=== PATIENT | male | born 1995 | race Caucasian/White ===

== ENCOUNTER 2017-12-07 07:24 | Emergency (ER) | payer OTHER ==
[~2017-12-07] VITALS: Ht 175.3 cm; Wt 119.3 kg
[2017-12-07 07:30] VITALS: TEMP 36.6; Ht 175.3 cm; Wt 119.3 kg
[2017-12-07] MEDS ORDERED: ONDANSETRON INJ 2 MG/ML 2 ML VIAL IV STA (07:47)
[2017-12-07] MEDS ORDERED: MoRPHine SULFATE 4 MG/ML 1 ML CARP\\VIAL IV STA (07:47)
[2017-12-07 08:24] LABS: BASO % 0.3 %; BASO ABS # 0.02 K/uL (0-0.2); EOS % 2.9 %; EOS ABS # 0.23 K/uL (0-0.5); HEMATOCRIT 43.7 % (42-52); HEMOGLOBIN 15.3 g/dL (14.0-18.0); IG# 0.02 K/uL (0.00-0.02); LYMPH % 24.1 %; LYMPH ABS # 1.91 K/uL (1.2-3.4); MEAN CORPUSCULAR HEMOGLOBIN 28.7 pg (25-34); MEAN PLATELET VOLUME 9.6 fL (7.4-10.4); MONO % 9.3 %; MONO ABS # 0.74 K/uL (0.11-0.59); NEUT % 63.1 %; NEUT ABS # 5.02 K/uL (1.4-6.5); PLATELET COUNT 292 K/uL (130-400); RED CELL DISTRIBUTION WIDTH CV 13.2 % (11.5-14.5); RED CELL DISTRIBUTION WIDTH SD 40.1 fL (36.4-46.3); WHITE BLOOD COUNT 7.94 K/uL (4.8-10.8)
[2017-12-07 08:39] LABS: CALCIUM 9.8 mg/dl (8.5-10.1); CREATININE 1.03 mg/dl (0.60-1.40); POTASSIUM 3.3 mmol/L (3.5-5.1)
--- NOTE | 2017-12-07 08:50 | DIAGNOSTIC IMAGING REPORT ---
ULTRASOUND TESTES AND SCROTUM CLINICAL HISTORY: Left testicular pain. COMPARISON STUDY: No priors. TECHNIQUE: Real-time, grayscale, and color Doppler sonography of the testes and scrotum is performed. Images are reviewed in the transverse and longitudinal planes. FINDINGS: The testes are normal in size and homogeneous in echotexture. The right testis measures 5.5 x 2.8 x 3.7 cm and the left testis measures 5.3 x 2.7 x 3.8 cm. No intratesticular mass is seen. Testicular blood flow is normal and symmetric. Normal Doppler waveforms are identified in both testes. The epididymal heads are normal in appearance. The right epididymal head measures 1.3 cm in length and the left epididymal head measures 1.0 cm in length. No varicocele or hydrocele is seen. IMPRESSION: Unremarkable sonographic assessment of the testes and scrotum. Electronically signed by: Robin Rushing M.D. 12/07/2017 8:49 AM Dictated Date/Time: 12/07/2017 8:48 AM
--- NOTE | 2017-12-07 10:48 | DIAGNOSTIC IMAGING REPORT ---
KUB CLINICAL HISTORY: Hematuria. Left scrotal pain. FINDINGS: 2 AP supine abdominal radiographs are obtained. No prior studies are available for comparison at the time of dictation. There is a nonobstructed abdominal bowel gas pattern. Moderate fecal retention is noted in the right colon. No evidence of intraperitoneal free air is seen on these supine images. There is no radiographic evidence of nephrolithiasis. The bony structures appear intact. IMPRESSION: There is no radiographic evidence of nephrolithiasis. Electronically signed by: Robin Rushing M.D. 12/07/2017 10:47 AM Dictated Date/Time: 12/07/2017 10:46 AM
--- NOTE | 2017-12-07 11:00 | EMERGENCY ROOM VISIT NOTE ---
History First contact with patient: 07:29 Chief Complaint: GROIN PAIN Stated Complaint: GROIN PAIN History of Present Illness The patient is a 22 year old male who presents to the Emergency Room via ambulance from the [facility] with complaints of "groin pain". The patient notes that he woke up today around 6 AM with 10 out of 10 sharp shooting left testicular pain. He felt as though his testicle on the left was pulled up into his abdomen. He states that nothing makes the pain better. He questions if perhaps urinating might make it better but does not believe so. He denies any dysuria, recent sexual contacts, headache, vision change, shortness of breath, chest pain, change in bowel or bladder. Review of Systems A complete 10-point Review of Systems was discussed with the patient, with pertinent positives and negatives listed in the History of Present Illness. All remaining Review of Systems questions can be considered negative unless otherwise specified. Past Medical/Surgical History No pertinent. Family History Kidney stones. Social History Smoking Status: Never Smoker Patient lives locally. Current/Historical Medications No Active Prescriptions or Reported Meds Physical Exam Vital Signs Date Time Temp Pulse Resp B/P (MAP) Pulse Ox O2 Delivery O2 Flow Rate FiO2 12/07/17 11:43 96 18 142/89 96 Room Air 12/07/17 10:12 98 18 149/79 98 Room Air 12/07/17 09:04 95 18 130/78 98 Room Air 12/07/17 07:30 36.6 84 18 133/92 97 Room Air Physical Exam VITAL SIGNS - Vital signs and nursing notes were reviewed. Stable. Afebrile. GENERAL -22-year-old male appearing his stated age who is in no acute distress. Communicates well with provider and answers questions appropriately. SKIN - Without rashes. No meningeal or petechial rash. HEAD - NC/AT. EYES - PERRL with EOMI bilaterally. Sclera anicteric. EARS - No deformities of external structures noted on gross examination bilaterally. NOSE - Midline and without cyanosis. No epistaxis or purulent drainage noted. MOUTH/OROPHARYNX - Without perioral cyanosis. NECK - Neck with FROM. Supple to palpation. No lymphadenopathy noted. No nuchal rigidity. LUNGS - Chest wall symmetric without accessory muscle use, intercostals retractions, or central cyanosis. Normal vesicular breath sounds CTA B/L. No wheezes, rales, or rhonchi appreciated. CARDIAC - RRR with S1/S2. No murmur, rubs, or gallops appreciated. ABDOMEN - Abdominal contour normal without pulsations or visible masses. BS normoactive all four quadrants. No tenderness, palpable masses, hepatosplenomegaly, or ascites noted. EXTREMITIES - No clubbing or peripheral cyanosis. No pretibial edema present. +5 /5 strength noted in UE/LE bilaterally. NEUROLOGIC - Cranial nerves II through XII grossly intact. Sensory intact to light touch throughout. PSYCH - A&O, and cooperates fully with examiner. Pt is very pleasant and interacts well with examiner. : Left testicle tender. Slightly raised. Not rotated or abnormal lie Medical Decision & Procedures ER Provider Diagnostic Interpretation: [ KUB CLINICAL HISTORY: Hematuria. Left scrotal pain. FINDINGS: 2 AP supine abdominal radiographs are obtained. No prior studies are available for comparison at the time of dictation. There is a nonobstructed abdominal bowel gas pattern. Moderate fecal retention is noted in the right colon. No evidence of intraperitoneal free air is seen on these supine images. There is no radiographic evidence of nephrolithiasis. The bony structures appear intact. IMPRESSION: There is no radiographic evidence of nephrolithiasis. Electronically signed by: Robin Rushing M.D. 12/07/2017 10:47 AM Dictated Date/Time: 12/07/2017 10:46 AM ULTRASOUND TESTES AND SCROTUM CLINICAL HISTORY: Left testicular pain. COMPARISON STUDY: No priors. TECHNIQUE: Real-time, grayscale, and color Doppler sonography of the testes and scrotum is performed. Images are reviewed in the transverse and longitudinal planes. FINDINGS: The testes are normal in size and homogeneous in echotexture. The right testis measures 5.5 x 2.8 x 3.7 cm and the left testis measures 5.3 x 2.7 x 3.8 cm. No intratesticular mass is seen. Testicular blood flow is normal and symmetric. Normal Doppler waveforms are identified in both testes. The epididymal heads are normal in appearance. The right epididymal head measures 1.3 cm in length and the left epididymal head measures 1.0 cm in length. No varicocele or hydrocele is seen. IMPRESSION: Unremarkable sonographic assessment of the testes and scrotum. Electronically signed by: Robin Rushing M.D. 12/07/2017 8:49 AM Dictated Date/Time: 12/07/2017 8:48 AM RENAL ULTRASOUND CLINICAL HISTORY: Hematuria, left testicular pain. COMPARISON STUDY: KUB December 07, 2017. TECHNIQUE: Sonography of the kidneys and the urinary bladder was performed. FINDINGS: The right kidney measures 10.4 cm in maximal dimension and the left measures 11.4 cm. There is no hydronephrosis. No masses or renal calculi are identified by sonography. Renal echogenicity, size and cortical thickness are normal. Bladder is suboptimally assessed given underdistention but no abnormalities identified. Borderline splenomegaly is noted. IMPRESSION: Unremarkable sonographic appearance of the kidneys. No hydronephrosis. Electronically signed by: Mahamed Ramirez M.D. 12/07/2017 11:25 AM Dictated Date/Time: 12/07/2017 11:24 AM Laboratory Results 12/07/17 08:09 Red Blood Count 5.33, Mean Corpuscular Volume 82.0, Mean Corpuscular Hemoglobin 28.7, Mean Corpuscular Hemoglobin Concent 35.0, Mean Platelet Volume 9.6, Neutrophils (%) (Auto) 63.1, Lymphocytes (%) (Auto) 24.1, Monocytes (%) (Auto) 9.3, Eosinophils (%) (Auto) 2.9, Basophils (%) (Auto) 0.3, Neutrophils # (Auto) 5.02, Lymphocytes # (Auto) 1.91, Monocytes # (Auto) 0.74, Eosinophils # (Auto) 0.23, Basophils # (Auto) 0.02 12/07/17 08:09 Test 12/07/17 08:09 12/07/17 09:50 White Blood Count 7.94 K/uL (4.8-10.8) Red Blood Count 5.33 M/uL (4.7-6.1) Hemoglobin 15.3 g/dL (14.0-18.0) Hematocrit 43.7 % (42-52) Mean Corpuscular Volume 82.0 fL (80-100) Mean Corpuscular Hemoglobin 28.7 pg (25-34) Mean Corpuscular Hemoglobin Concent 35.0 g/dl (32-36) Platelet Count 292 K/uL (130-400) Mean Platelet Volume 9.6 fL (7.4-10.4) Neutrophils (%) (Auto) 63.1 % Lymphocytes (%) (Auto) 24.1 % Monocytes (%) (Auto) 9.3 % Eosinophils (%) (Auto) 2.9 % Basophils (%) (Auto) 0.3 % Neutrophils # (Auto) 5.02 K/uL (1.4-6.5) Lymphocytes # (Auto) 1.91 K/uL (1.2-3.4) Monocytes # (Auto) 0.74 K/uL (0.11-0.59) Eosinophils # (Auto) 0.23 K/uL (0-0.5) Basophils # (Auto) 0.02 K/uL (0-0.2) RDW Standard Deviation 40.1 fL (36.4-46.3) RDW Coefficient of Variation 13.2 % (11.5-14.5) Immature Granulocyte % (Auto) 0.3 % Immature Granulocyte # (Auto) 0.02 K/uL (0.00-0.02) Anion Gap 8.0 mmol/L (3-11) Est Creatinine Clear Calc Drug Dose 145.9 ml/min Estimated GFR () 120.6 Estimated GFR (Non- 104.1 BUN/Creatinine Ratio 10.3 (10-20) Calcium Level 9.8 mg/dl (8.5-10.1) Urine Color YELLOW Urine Appearance CLEAR (CLEAR) Urine pH 5.5 (4.5-7.5) Urine Specific [place] 1.011 (1.000-1.030) Urine Protein NEG (NEG) Urine Glucose (UA) NEG (NEG) Urine Ketones NEG (NEG) Urine Occult Blood 3+ (NEG) Urine Nitrite NEG (NEG) Urine Bilirubin NEG (NEG) Urine Urobilinogen NEG (NEG) Urine Leukocyte Esterase TRACE (NEG) Urine WBC (Auto) 5-10 /hpf (0-5) Urine RBC (Auto) 5-10 /hpf (0-4) Urine Hyaline Casts (Auto) 1-5 /lpf (0-5) Urine Epithelial Cells (Auto) 20-30 /lpf (0-5) Urine Bacteria (Auto) NEG (NEG) Medications Administered Medications (Trade) Dose Ordered Sig/Juan Route Start Time Stop Time Status Last Admin Dose Admin Morphine Sulfate (MoRPHine SULFATE INJ) 4 mg NOW STAT IV 12/07/17 07:47 12/07/17 07:48 DC 12/07/17 08:08 4 MG Ondansetron HCl (Zofran Inj) 4 mg NOW STAT IV 12/07/17 07:47 12/07/17 07:48 DC 12/07/17 08:07 4 MG Medical Decision Patient was seen and evaluated as above in room A10. Review was performed of nursing notes and vital signs. After obtaining a thorough history and physical examination the above work up was performed. He presents to us today with left testicular pain. There is concern for possible testicular torsion. Block labs were initiated. Scrotal ultrasound obtained. This was negative. He was given morphine for pain. Upon his return from ultrasound the patient was noting extreme relief of his pain and had no pain. This was even after the morphine likely would have worn off. Repeat examination of the scrotum does reveal 2 descended testes without edema. There is no more tenderness. I will note that scrotal examination was difficult initially as the room was cold, and there was constriction of the scrotum. I did educate the patient upon potential torsion/ detorsion. I did discuss the findings with the attending physician as well as the [employer] [facility] for [facility] urology, [place]. Call took place at 9:44 AM. We discussed the findings. It was recommended the patient follow-up in the outpatient setting with their office. He will follow-up December 19. Patient was informed upon this. I will note that at this time repeat examination of the testicle, patient's pain level, and findings today I believe suggest a normal healthy testicle that could have been torsed initially however I do not suspect that he currently is torsed. I did inform him however that if he experiences worsening of symptoms he is to return. Urine reveals no sign of infection but at this time there is blood in the urine. It is microscopic. I obtained a KUB as well as a renal ultrasound. He was informed upon the splenomegaly and is to follow with the family doctor. The patient was educated upon management, educated upon todays findings/results, educated upon symptoms in which to return, had questions answered prior to discharge, and was discharged home in good condition. CBC reveals no concerning leukocytosis or anemia. Mild hypokalemia noted. He is to consume foods high in potassium. Case was discussed with the attending physician. In the evaluation and treatment of this patient the following differential diagnoses were entertained: Testicular torsion, UTI, STI, orchitis, epididymitis , among others. Impression Primary Impression: Testicular pain, left Additional Impression: Hypokalemia Departure Information Dispostion Home / Self-Care Condition GOOD Prescriptions No Active Prescriptions or Reported Meds Referrals Gibson Gutierres D.O. (PCP) Klever Roque MD, Urology Patient Instructions [facility] Additional Instructions You have been treated in the Emergency Department for left-sided testicular pain. Your testicular ultrasound, ultrasound of the kidneys, and your x-ray did not show any kidney stones or evidence of testicular torsion. Your ultrasound does reveal that your spleen is borderline enlarged. Please follow with your family doctor regarding this. The urologist, Dr. Roque would like to see you in his office December 19 at 11:15 AM. If you need to change this please call them. Number provided. For pain control, you can use the following [id number] medicines (if >12 yo): - Regular strength (325mg/tab) Tylenol (acetaminophen) 2 tabs every 4-6 hours as needed. Do not exceed 12 tablets in a 24 hour period. Avoid taking more than 4 grams (4000 mg) of Tylenol per day. This includes any other sources of acetaminophen you may take on a regular basis. - Regular strength (200 mg/tab) Advil (ibuprofen) 1-2 tabs every 4-6 hours as needed. Do not exceed a dose of 3200 mg per day. Return to the emergency department if your symptoms worsen despite treatment course outlined above. Drink plenty of water and stay well hydrated. As with any trip to the Emergency Department, you should follow-up with your Primary Care Provider from today's visit. Return to the emergency department if your symptoms persist despite treatment plan outlined above or if the following symptoms occur: increased fevers, chills , low back pain, nausea/vomiting, or blood in your urine. Problem Qualifiers
--- NOTE | 2017-12-07 11:26 | DIAGNOSTIC IMAGING REPORT ---
RENAL ULTRASOUND CLINICAL HISTORY: Hematuria, left testicular pain. COMPARISON STUDY: KUB December 07, 2017. TECHNIQUE: Sonography of the kidneys and the urinary bladder was performed. FINDINGS: The right kidney measures 10.4 cm in maximal dimension and the left measures 11.4 cm. There is no hydronephrosis. No masses or renal calculi are identified by sonography. Renal echogenicity, size and cortical thickness are normal. Bladder is suboptimally assessed given underdistention but no abnormalities identified. Borderline splenomegaly is noted. IMPRESSION: Unremarkable sonographic appearance of the kidneys. No hydronephrosis. Electronically signed by: Mahamed Ramirez M.D. 12/07/2017 11:25 AM Dictated Date/Time: 12/07/2017 11:24 AM
[2017-12-07 11:43] VITALS: BP 142/89; PULSE 96; O2SAT 96
== END 2017-12-07 11:51 | disposition home or self-care (01) ==
LOC: C.EDA 07:26
DX: N50.812 Left testicular pain (principal); E87.6 Hypokalemia; R16.1 Splenomegaly, not elsewhere classified; R31.29 Other microscopic hematuria; Z84.1 Family history of disorders of kidney and ureter